=== PATIENT | female | born 1940 | race Caucasian/White ===

== ENCOUNTER 2017-08-11 10:15 | Day surgery (SDC) | payer MEDICARE ==
[2017-08-10 11:54] VITALS: BMI 27.3
[~2017-08-11 10:15] MED LIST: INDOMETHACIN 50MG SUPPOSITORY RECTAL ONE; LACTATED RINGERS 1,000 ML IV NR; LACTATED RINGERS 1,000 ML IV SCH; LEVOFLOXACIN 500MG-D5W PMX 500 MG in DEXTROSE/WATER 1 100ML.BAG IVPB NR; LIDOCAINE 1% 20 ML VIAL (10MG/ML) FOR IV START INTRADERMA PRN; MIDAZOLAM 2 MG/2 ML VIAL IV PRN; Pre Op ABX Message 1 EACH MISC MISCELLANE ONE
[2017-08-11 12:51] VITALS: TEMP 99
[2017-08-11] MEDS ORDERED: SODIUM CHLORIDE 0.9% 1,000 ML IV ONE (13:11)
[2017-08-11 13:30] LABS: Basophils % (A) 1 %; Eosinophils # (A) 0.1 k/uL (0-0.7); Eosinophils % (A) 1 %; HCT 38.5 % (34.0-46.0); HGB 13.1 gm/dL (11.4-16.0); Lymphocytes % (A) 23 %; MCHC 34.1 g/dL (31.0-37.0); MCV 87.9 fL (80.0-100.0); Mean Platelet Volume 7.6; Monocytes # (A) 0.3 k/uL (0-1.0); Monocytes % (A) 7 %; Neutrophils # (A) 2.7 k/uL (1.3-7.7); Neutrophils % (A) 65 %; Platelet Count 176 k/uL (150-450); RBC 4.38 m/uL (3.80-5.40); WBC 4.2 k/uL (3.8-10.6)
[2017-08-11 13:34] LABS: INR 1.2 (<1.2); Prothrombin Time 11.5 sec (9.0-12.0)
[2017-08-11 13:47] LABS: ALT 75 U/L (9-52); AST 136 U/L (14-36); Albumin 3.2 g/dL (3.5-5.0); Alkaline Phosphatase 537 U/L (38-126); Anion Gap 17 mmol/L; Blood Urea Nitrogen 9 mg/dL (7-17); Calcium 8.3 mg/dL (8.4-10.2); Carbon Dioxide 26 mmol/L (22-30); Chloride 99 mmol/L (98-107); Glucose 99 mg/dL (74-99); Sodium 142 mmol/L (137-145); Total Bilirubin 8.2 mg/dL (0.2-1.3); Total Protein 6.1 g/dL (6.3-8.2)
[2017-08-11] MEDS: POTASSIUM CHLORIDE 10 MEQ in WATER FOR INJECTION 1 100ML.BAG IVPB SCH ×2 (14:48→17:03)
[2017-08-11] MEDS ORDERED: PROPOFOL 10 MG/ML 20 ML VIAL IV ONE (15:01)
[2017-08-11] MEDS ORDERED: fentaNYL (PF) 50 MCG/ML 2 ML AMP ONE (15:01)
[2017-08-11] MEDS ORDERED: LIDOCAINE 1% INJ 10MG/ML (20 ML MDV) ONE (15:01)
[2017-08-11] MEDS ORDERED: GLUCAGON 1 MG/ML VIAL ONE (15:01)
[2017-08-11] MEDS ORDERED: IOPAMIDOL-300 50ML BTL MISCELLANE ONE (15:35)
--- NOTE | 2017-08-11 15:53 | P.PCN ---
Date of Procedure: 08/11/17 Procedure(s) Performed: Brief history: Patient is a 77-year-old pleasant white female, scheduled for ERCP as a part of evaluation of obstructive jaundice/pain this for the last [address] of the abdomen showed a 10 cm mass in the epigastric area involving the mesentery with external compression of the common bile duct. In view of the obstructive jaundice, she is scheduled for ERCP with biliary drainage today. . Procedure performed: ERCP with brush cytology and [place] CBD stent placement Preoperative diagnoses: obstructive jaundice/epigastric mass IV sedation per anesthesia: Procedure: After informed consent was obtained from the patient and after the risks benefits and complications including bleeding perforation and pancreatitis explained in detail the patient was brought into the endoscopy unit. The patient was placed in prone position and IV conscious sedation was administered by anesthesia under continuous monitoring. The Olympus side-viewing duodenoscope was then inserted into the mouth and esophagus intubated without any difficulty. The scope was gradually advanced into the stomach and duodenum. The major papilla was identified without any difficulty. Initial cannulation resulted in a presentation of the common bile duct. Upon injection of the dye there was a long irregular narrowing of the common bile duct measuring at least 5 cm in length with proximal biliary dilation. At this time the cytology was performed over the guidewire and following this a 10-[place] 7 cm plastic stent was placed into the proximal CBD with good drainage of the bile pancreatic duct could not be cannulated. Patient tolerated the procedure well.. Impression: 1. Irregular narrowing of the common bile duct measuring 5 cm in length with proximal biliary dilation, status post breast cytology and 10-[place] 7 cm plastic stent placement as described above 2. Pancreatic duct could not be cannulated. Recommendations: The findings of this examination were discussed with the patient as well as a family. At this time will await the brush cytology results. Patient is scheduled for CT-guided biopsy of the mesenteric mass early next week. She'll be seen in office in 1 week.
[2017-08-11] MEDS ORDERED: IV FLUID CONTINUATION 1,000 ML IV ONE (16:06)
[2017-08-11 16:10] VITALS: RESP 16
[2017-08-11 16:22] VITALS: BP 155/86; PULSE 67
--- NOTE | 2017-08-14 08:47 | FL ---
EXAMINATION TYPE: FL ERCP biliary duct only DATE OF EXAM: 08/11/2017 HISTORY: Flouroscopy time 38 seconds of fluoroscopy provided. IMPRESSION: 1. Fluoroscopy time.
== END 2017-08-11 16:51 | disposition home or self-care (01) ==
LOC: ORWHC2ENDO 10:15
PROVIDERS: ATTEND Internal Medicine Gastroenterology
DX: K83.1 Obstruction of bile duct (principal); R19.06 Epigastric swelling, mass or lump; F17.200 Nicotine dependence, unspecified, uncomplicated; Z85.53 Personal history of malignant neoplasm of renal pelvis
CPT/HCPCS: 80053; 85025; 85610; 74328; 43274; 43261; J1610; J1956; J2001; J3010; J3480; J2704; Q9967; C1769 ×2; 88104; 88305

== ENCOUNTER 2017-08-14 07:43 | Day surgery (SDC) | payer MEDICARE ==
[2017-08-14] MEDS ORDERED: ALPRAZolam 0.25 MG TAB PO STA (08:25)
[2017-08-14 08:27] LABS: Mean Platelet Volume 7.2; Platelet Count 195 k/uL (150-450)
[2017-08-14 08:39] LABS: INR 1.1 (<1.2); Prothrombin Time 10.7 sec (9.0-12.0)
[2017-08-14 08:40] VITALS: RESP 20; TEMP 97.7
[2017-08-14 09:38] LABS: Blood Urea Nitrogen 7 mg/dL (7-17)
[2017-08-14] MEDS ORDERED: RX INFO: IV CONTRAST WAS GIVEN 1 EACH MISC MISCELLANE PRN (09:49)
[2017-08-14 09:53] VITALS: BP 195/87; PULSE 69
--- NOTE | 2017-08-14 11:01 | CT ---
EXAMINATION TYPE: CT abdomen w con DATE OF EXAM: 08/14/2017 HISTORY: Abdominal mass, History of left nephrectomy due to renal cancer CT DLP: 617.20mGycm Automated Exposure Control for Dose Reduction was Utilized. CONTRAST: CT scan of the abdomen is performed with IV Contrast, patient injected with 100 ml mL of Isovue 300. No oral contrast. This limits evaluation of the hollow viscera. COMPARISON: ERCP dated 08/11/2017. Outside CT dated 07/24/2017 without report FINDINGS: LUNG BASES: There is partial visualization of 3 mm and 4 mm left-sided lower lobe pulmonary nodules o n the first image of series 4. LIVER/GB: Predominantly left-sided pneumobilia is present with note of a recent ERCP, likely postproc edural. Biliary stent has been placed. Gallbladder contains intraluminal air, also likely from recent instrumentation. Liver enhances homogeneously. PANCREAS: Centered around the pancreatic body and head there is a large hyperdense intra-abdominal ma ss abutting the lesser curvature of the stomach and 180 degrees of the descending duodenum. Descendin g duodenum has bowel wall thickening. Extensive inflammatory changes are seen surrounding this mass a nd within the central mesentery extending into the postsurgical bed of the left kidney. There is sign ificant atrophy of the pancreatic tail with presumed ductal dilatation of the pancreatic tail and 2 h ypoattenuated pancreatic masses measuring 1.9 x 2.3 cm on series 3 image 24 and 1.7 x 1.6 cm on serie s 3 image 29. There is extensive mesenteric engorgement with appearance of neovascularization and rec ruitment of blood vessels to this hyperdense mass. The mass measures up tor 9.9 x 8.3 cm on series 3 image 33 and transverse by anterior posterior dimension and approximately 9.2 cm in craniocaudal dime nsion on series 7 image 28. SPLEEN: The spleen is enlarged measuring 15.1 cm in longitudinal dimension. ADRENALS: Left adrenal gland appears surgically absent. Right adrenal gland is unremarkable. KIDNEYS: Left kidney is surgically absent. Right kidney enhances homogeneously. BOWEL: Bowel is nondilated. Mild bowel wall thickening of the right hemicolon and proximal transverse colon are likely due to adjacent inflammatory change and mesenteric congestion. LYMPH NODES: There are multiple enlarged peripancreatic and celiac axis as well as gastrohepatic liga ment lymph nodes with the largest poorly visualized due to adjacent mesenteric congestion best seen o n series 3 image 26 measuring approximately 1.2 cm in short axis,r 1.2 cm in short axis on series 3 i mage 36, and 1.5 cm in short axis on series 3 image 36. There is extensive surrounding mesenteric vas cular engorgement. Periaortic adenopathy is also seen within the abdomen measuring up to 1.1 cm on se lb 3 image 41. OSSEOUS STRUCTURES: Mild degenerative changes of the visualized thoracolumbar spine.. OTHER: No free air is seen. Small volume perihepatic ascites extends into the right lateral conal fas selina and hepatorenal fossa. There is a small fat filled umbilical hernia noted. IMPRESSION: 1. Large hyperdense central abdominal mass centered within the pancreatic body and head with mass eff ect upon the lesser curvature the stomach and duodenum with associated surrounding adenopathy and dis zenobia pancreatic tail atrophy without ductal dilatation. Findings are concerning for either primary [place] creatic neoplasm or metastasis from the prior left renal carcinoma. Two additional hypoattenuated cys tic appearing pancreatic body masses are present. 2. In comparison to the prior outside provided images there is progression of extensive mesenteric co ngestion and surrounding inflammatory change with new mild mesenteric ascites. 3. Pneumobilia, air within the gallbladder, and biliary stent are all presumed postprocedural from e recent ERCP dated 08/11/2017. No pneumoperitoneum. 4. No discrete hepatic or osseous lesions. 5. Splenomegaly.
== END 2017-08-14 10:45 | disposition home or self-care (01) ==
LOC: RADPROMAIN 07:43
PROVIDERS: ATTEND Internal Medicine Gastroenterology
DX: K86.9 Disease of pancreas, unspecified (principal); R59.9 Enlarged lymph nodes, unspecified; K82.8 Other specified diseases of gallbladder; R16.1 Splenomegaly, not elsewhere classified
CPT/HCPCS: 82565; 84520; 85049; 85610; 36415; 74160; 49180; Q9967

== ENCOUNTER 2017-08-22 08:55 | Day surgery (SDC) | payer MEDICARE ==
[~2017-08-22 08:55] MED LIST changes: +ALPRAZolam 0.25 MG TAB PO ONE; -INDOMETHACIN 50MG SUPPOSITORY RECTAL ONE; -LACTATED RINGERS 1,000 ML IV NR; -LACTATED RINGERS 1,000 ML IV SCH; -LEVOFLOXACIN 500MG-D5W PMX 500 MG in DEXTROSE/WATER 1 100ML.BAG IVPB NR; -LIDOCAINE 1% 20 ML VIAL (10MG/ML) FOR IV START INTRADERMA PRN; -MIDAZOLAM 2 MG/2 ML VIAL IV PRN; -Pre Op ABX Message 1 EACH MISC MISCELLANE ONE
[2017-08-22 09:25] VITALS: BP 188/90; PULSE 80; RESP 16; TEMP 97.5
[2017-08-22 09:37] LABS: Mean Platelet Volume 6.7; Platelet Count 202 k/uL (150-450)
[2017-08-22 09:39] LABS: INR 1.1 (<1.2); Partial Thromboplastin Time 25.1 sec (22.0-30.0); Prothrombin Time 10.7 sec (9.0-12.0)
== END 2017-08-22 10:50 | disposition home or self-care (01) ==
LOC: RADPROMAIN 08:55
PROVIDERS: ATTEND Internal Medicine Gastroenterology
DX: R19.00 Intra-abdominal and pelvic swelling, mass and lump, unspecified site (principal); Z53.8 Procedure and treatment not carried out for other reasons; I10 Essential (primary) hypertension
CPT/HCPCS: 85049; 85610; 85730